=== PATIENT | male | born 1965 | race Two or more races ===

== ENCOUNTER 2020-09-16 10:38 | Emergency (ER) | payer SELFPAY ==
[~2020-09-16] VITALS: Ht 172.7 cm; Wt 91.0 kg
[2020-09-16] MEDS ORDERED: SODIUM CHLORIDE 0.9% 1,000 ML IV ONE (11:15)
[2020-09-16 14:35] LABS: BASOPHILS % 0.3 % (0.0-2.0); EOSINOPHILS % 0.1 % (0.0-5.0); HEMATOCRIT. 39.1 % (42.0-52.0); HEMOGLOBIN. 13.5 g/dL (14.0-18.0); LYMPHOCYTES % 9.4 % (20.0-50.0); MEAN CORPUSCULAR HEMOGLOBIN 30.4 pg (28.0-32.0); MEAN CORPUSCULAR VOLUME 88.3 fL (80.0-94.0); MEAN PLATELET VOLUME 10.9 fl (7.4-10.4); MONOCYTES % 7.9 % (2.0-8.0); NEUTROPHILS % 82.3 % (40.0-76.0); PLATELET 192 x1000/uL (130-400); RED BLOOD CELL COUNT 4.43 mill/uL (4.7-6.1); RED CELL DISTRIBUTION WIDTH 11.7 % (11.6-14.6)
[2020-09-16 14:42] LABS: CHLORIDE 98 mEq/L (98-107)
[2020-09-16 15:57] VITALS: BP 130/80
== END 2020-09-16 16:01 | disposition home or self-care (01) ==
LOC: ER 10:38
DX: U07.1 COVID-19 (principal); J12.89 Other viral pneumonia; R73.9 Hyperglycemia, unspecified
CPT/HCPCS: 36415; 71045; 80053; 83735; 84484; 85025; 93005; 96360; 96361; 99285; C9803; J7030; U0003; Z7610